=== PATIENT | male | born 1950 | race Caucasian/White ===

== ENCOUNTER 2017-04-25 06:04 | Day surgery (SDC) | payer MEDICARE, OTHER ==
[~2017-04-25] VITALS: Ht 188 cm; Wt 128.5 kg
[~2017-04-25 06:04] MED LIST: AMLO10TA2 PO; AMOX1TAB64 PO; ATOR20TA PO; DIAZ5TAB PO; FOLI1TAB8 PO; HYDR-3307 PO; LISI-167 PO; LISI-170 PO; LOPE2TAB28 PO; MELA10TA PO; METH750T87 PO; METR500T PO; MORP15TA PO; MULT-658 PO; OMEP-110 PO; OXYC-229 PO; POLY17PO5 PO; RANI75TA12 PO; SULF1TAB24 PO; TAMS0.4C2 PO
[2017-04-25 07:12] VITALS: BP 127/75
[2017-04-25] MEDS ORDERED: SODIUM CHLORIDE 0.9% 1,000 ML IV SCH (07:15)
[2017-04-25] MEDS ORDERED: METO25TA35 PO (07:17)
[2017-04-25] MEDS ORDERED: FLUMAZENIL 0.1 MG/1 ML, 5ML ONE (07:53)
[2017-04-25] MEDS ORDERED: FENTANYL PF 100 MCG/2ML ONE (07:53)
[2017-04-25] MEDS ORDERED: NALOXONE 1 MG/ML, 2ML ONE (07:53)
[2017-04-25] MEDS ORDERED: MIDAZOLAM 1 MG/ML, 5ML ONE (07:53)
[2017-04-25] MEDS ORDERED: LIDOCAINE 1%, 20ML ONE (07:55)
== END 2017-04-25 11:25 ==
LOC: OUT 06:04 → EDSTATUS 07:30 → OUT 11:25
PROVIDERS: ATTEND Urology
DX: K65.1 Peritoneal abscess (principal); I10 Essential (primary) hypertension; F17.210 Nicotine dependence, cigarettes, uncomplicated; E78.5 Hyperlipidemia, unspecified; N40.0 Benign prostatic hyperplasia without lower urinary tract symptoms; Z72.89 Other problems related to lifestyle; Z93.3 Colostomy status; Z85.048 Personal history of other malignant neoplasm of rectum, rectosigmoid junction, and anus; Z86.73 Personal history of transient ischemic attack (TIA), and cerebral infarction without residual deficits; Z98.890 Other specified postprocedural states
CPT/HCPCS: 49406; 75989; 87070; 87075; 87205; 99156; C1729; C1769; C1894; J2250; J3010; J3490; J7030; 99157; J2310

== ENCOUNTER → 2017-06-04 | Outpatient (CLI) | payer MEDICARE, OTHER ==
[~2017-06-04] MED LIST changes: +METO25TA35 PO; +OMNIPAQUE 350 MG/ML, 150 ML BOTTLE ONE; -OXYC-229 PO; +OXYC-307 PO
== END | disposition home or self-care (01) ==
LOC: RAD 13:31
PROVIDERS: ATTEND Colon & Rectal Surgery
DX: N13.39 Other hydronephrosis (principal); K43.5 Parastomal hernia without obstruction or gangrene; N32.9 Bladder disorder, unspecified; M53.3 Sacrococcygeal disorders, not elsewhere classified; C20 Malignant neoplasm of rectum
CPT/HCPCS: 72193; Q9967

== ENCOUNTER 2017-06-11 07:11 | Day surgery (SDC) | payer MEDICARE, OTHER ==
[~2017-06-11] VITALS: Ht 188 cm; Wt 127.2 kg
[~2017-06-11 07:11] MED LIST changes: -OMNIPAQUE 350 MG/ML, 150 ML BOTTLE ONE
[2017-06-11 08:00] VITALS: BP 150/76
[2017-06-11 08:25] LABS: BLOOD UREA NITROGEN 20 mg/dL (7-18)
[2017-06-11] MEDS ORDERED: LIDOCAINE 1%, 20ML ONE (09:32)
[2017-06-11] MEDS ORDERED: MIDAZOLAM 1 MG/ML, 5ML ONE (09:39)
[2017-06-11] MEDS ORDERED: FENTANYL PF 100 MCG/2ML ONE (09:39)
[2017-06-11] MEDS ORDERED: NALOXONE 1 MG/ML, 2ML ONE (09:40)
[2017-06-11] MEDS ORDERED: FLUMAZENIL 0.1 MG/1 ML, 5ML ONE (09:40)
[2017-06-11] MEDS ORDERED: OXYcodone/APAP 10/325MG TABLET ONE (11:03)
[2017-06-11] MEDS ORDERED: OXYcodone/APAP 10/325MG TABLET PO ONE (11:30)
== END 2017-06-11 11:55 ==
LOC: OUT 07:11 → EDSTATUS 08:30 → OUT 11:55
PROVIDERS: ATTEND Colon & Rectal Surgery
DX: K43.5 Parastomal hernia without obstruction or gangrene (principal); I10 Essential (primary) hypertension; F17.210 Nicotine dependence, cigarettes, uncomplicated
CPT/HCPCS: 36415; 49423; 75984; 80048; 99156; 99157; C1729; J2250; J3010; J3490; J2310